=== PATIENT | female | born 1960 | race American Indian/Alaskan Native ===

== ENCOUNTER 2017-08-21 14:46 | Emergency (ER) | payer OTHER ==
[2017-08-21 15:31] VITALS: RESP 18; TEMP 98.8
--- NOTE | 2017-08-21 15:35 | ED PDOC ---
Arrival/HPI - General Chief Complaint: Trauma Time Seen by Provider: 08/21/17 15:28 Historian: Patient - History of Present Illness Narrative History of Present Illness (Text): 08/21/17 15:30 A 56 year old female, with no significant past medical history, presents to the emergency department complaining of left hip pain s/p mechanical fall. Patient reports she was walking 4 days ago and suddenly tripped on uneven sidewalk, falling over backwards. Patient resulted in hitting left hip. Patient was able to ambulate afterwards, denies of any trauma or LOC. However the next day after waking up, patient began experiencing left hip pain and has had difficulty ambulating due to pain. PMD: Dr. Antonio Farfan Past Medical History - Provider Review Nursing Documentation Reviewed: Yes - Infectious Disease Hx of Infectious Diseases: None - Reproductive Menopause: No - Cardiac Hx Hypertension: Yes - Endocrine/Metabolic Hx Diabetes Mellitus Type 2: Yes - Psychiatric Hx Substance Use: No - Anesthesia Hx Anesthesia Reactions: No Family/Social History - Physician Review Nursing Documentation Reviewed: Yes Family/Social History: No Known Family HX Smoking Status: Unknown If Ever Smoked Hx Alcohol Use: No Hx Substance Use: No Allergies/Home Meds Allergies/Adverse Reactions: Allergies No Known Allergies Allergy (Verified 08/21/17 15:32) Review of Systems - Physician Review All systems were reviewed & negative as marked: Yes - Review of Systems Constitutional: absent: Other (no trauma) Respiratory: absent: SOB Cardiovascular: absent: Chest Pain Gastrointestinal: absent: Abdominal Pain, Nausea, Vomiting Musculoskeletal: Other (left hip pain s/p mechanical fall). absent: Back Pain, Neck Pain Neurological: absent: Headache, Dizziness, Other (no LOC) Physical Exam Vital Signs Reviewed: Yes Vital Signs Temp Pulse Resp BP Pulse Ox 08/21/17 17:00 75 18 118/68 100 08/21/17 15:18 98.8 F 82 18 121/70 99 Temperature: Afebrile Blood Pressure: Normal Pulse: Regular Respiratory Rate: Normal Appearance: Positive for: Well-Appearing Pain Distress: None Mental Status: Positive for: Alert and Oriented X 3 - Systems Exam Head: Present: Atraumatic, Normocephalic Neck: No: MIDLINE TENDERNESS, Paraspinal Tenderness Respiratory/Chest: Present: Clear to Auscultation, Good Air Exchange. No: Respiratory Distress, Accessory Muscle Use Cardiovascular: Present: Regular Rate and Rhythm, Normal S1, S2. No: Murmurs Back: No: Midline Tenderness, Paraspinal Tenderness Lower Extremity: Present: Tenderness (left bony hip tenderness). No: Deformity (no palpable deformity) Medical Decision Making ED Course and Treatment: 08/21/17 15:35 Impression: 56 year old female with left hip pain s/p mechanical fall. Physical exam shows left hip bony tenderness and no palpable deformity. Plan: -- Bilateral Hip X-Ray -- Valium -- Toradol -- Reassess and disposition Progress Notes: 08/21/17 17:23 Xray negative. Patient ambulating around the ED without issue. She reports pain is improved. She has PMD follow-up tomorrow morning. - RAD Interpretation Radiology Orders: 08/21/17 15:28 Hip Bi with Pelvis Fall Protocol [HIP MIN 2V W/ PELVIS STERLING] [RAD] Stat - Medication Orders Current Medication Orders: Discontinued Medications Diazepam (Valium) 5 mg PO STAT STA PRN Reason: Protocol Stop: 08/21/17 15:30 Last Admin: 08/21/17 16:28 Dose: 5 mg Ketorolac Tromethamine (Toradol) 30 mg IM STAT STA Stop: 08/21/17 15:30 Last Admin: 08/21/17 16:28 Dose: 30 mg MAR Pain Assessment Document 08/21/17 16:28 REYNALDO (Rec: 08/21/17 16:29 REYNALDO [id number]) Pain Reassessment Is this a pain reassessment? Yes Pain Scale Used Pain Scale Used Numeric Location Left, Right or Bilateral Left Pain Location Body Site Hip Description Intensity of Pain at present 8 IM Administration Charges Document 08/21/17 16:28 REYNALDO (Rec: 08/21/17 16:29 REYNALDO [id number]) Injection Site MAR Injection Site Left Deltoid Charges for Administration # of IM Administrations 1 - Scribe Statement The provider has reviewed the documentation as recorded by the Filippo Osullivan Provider Scribe Attestation: All medical record entries made by the Scribe were at my direction and personally dictated by me. I have reviewed the chart and agree that the record accurately reflects my personal performance of the history, physical exam, medical decision making, and the department course for this patient. I have also personally directed, reviewed, and agree with the discharge instructions and disposition. Disposition/Present on Arrival - Present on Arrival Any Indicators Present on Arrival: No History of DVT/PE: No History of Uncontrolled Diabetes: No Urinary Catheter: No History of Decub. Ulcer: No History Surgical Site Infection Following: None - Disposition Have Diagnosis and Disposition been Completed?: Yes Diagnosis: Hip pain, Fall Disposition: HOME/ ROUTINE Disposition Time: 17:24 Patient Plan: Discharge Condition: GOOD Discharge Instructions (ExitCare): Hip Pain (ED) Additional Instructions: Motrin 400mg every 6 hours for pain. Flexeril for severe muscle spasm. Return to ED if condition worsens. Follow-up with PMD at appt tomorrow as scheduled. Return to ED if condition worsens. Prescriptions: Cyclobenzaprine [Cyclobenzaprine HCl] 10 mg PO TID #15 tab Referrals: Antonio Farfan MD [Primary Care Provider] - Follow up with primary Forms: [employer] (Serbian)
[2017-08-21 15:42] VITALS: BMI 34.2
[2017-08-21 17:47] VITALS: BP 118/68; PULSE 75; O2SAT 100
--- NOTE | 2017-08-22 07:53 | RAD ---
PROCEDURE: Radiographs of the pelvis and bilateral hips HISTORY: L hip pain after fall COMPARISON: None. FINDINGS: BONES: Pelvis: Unremarkable. Right hip:Unremarkable. Left hip:Unremarkable. JOINTS: Right hip: Unremarkable. Left hip: Unremarkable. Sacroiliac Joints: Unremarkable. Pubic symphysis: Unremarkable. SOFT TISSUES: Normal. OTHER FINDINGS: None. IMPRESSION: Unremarkable radiographs of the hips and pelvis.
== END 2017-08-21 17:55 | disposition home or self-care (01) ==
LOC: ED 14:46
DX: M25.552 Pain in left hip (principal); W01.0XXA Fall on same level from slipping, tripping and stumbling without subsequent striking against object, initial encounter; Y92.480 Sidewalk as the place of occurrence of the external cause
CPT/HCPCS: 73521; 96372; 99283; J1885

== ENCOUNTER 2018-01-17 17:43 | Observation (INO) | payer OTHER ==
[2018-01-17 18:00] VITALS: BMI 34.7
--- NOTE | 2018-01-17 18:52 | ED PDOC ---
Arrival/HPI - General Chief Complaint: Weakness/Neurological Deficit Time Seen by Provider: 01/17/18 18:05 Historian: Patient - History of Present Illness Narrative History of Present Illness (Text): 01/17/18 18:41 Pt is a 57 yr old female with PMH of TIA (2011), DMII, HTN, and asthma who present tot the ED complaining of a tingling sensation of her face and neck that started last night at 8:45 pm that lasted roughly 60 minutes after taking ASA 81 mg,then continued and was anxious and felt symptoms arising at 4am that waxed and waned throughout the night. Pt continued to have tingling on the face and lips intermittently. She was seen by her PMD, Dr. Alvarez at 12 noon who advised her to go to the ED for a head CT to ascertain status. Denies chest pain , shortness of breath, nausea, vomiting, diarrhea, neck pain, fever, change in vision, balance, urine or bowel. Symptom Onset: Gradual Symptom Course: Unchanged, Intermittent Quality: Unable to Describe Severity Level: 1 Activities at Onset: Rest Context: Home Past Medical History - Provider Review Nursing Documentation Reviewed: Yes - Travel History Have you recently traveled outside [place] w/in the past 3 mons?: No - Infectious Disease Hx of Infectious Diseases: None - Cardiac Hx Cardiac Disorders: Yes Hx Hypertension: Yes - Pulmonary Hx Respiratory Disorders: Yes Hx Asthma: Yes - Neurological Hx Neurological Disorder: Yes Hx Transient Ischemic Attacks (TIA): Yes (2011) - HEENT Hx HEENT Disorder: Yes Other/Comment: wears glasses - Renal Hx Renal Disorder: No - Endocrine/Metabolic Hx Endocrine Disorders: Yes Hx Diabetes Mellitus Type 2: Yes - Hematological/Oncological Hx Blood Disorders: No - Integumentary Hx Dermatological Disorder: No - Musculoskeletal/Rheumatological Hx Musculoskeletal Disorders: Yes Hx Arthritis: Yes - Gastrointestinal Hx Gastrointestinal Disorders: No - Genitourinary/Gynecological Hx Genitourinary Disorders: No - Psychiatric Hx Psychophysiologic Disorder: No Hx Substance Use: No - Surgical History Other/Comment: Tub lesbiansim, bladder lift., reconstructive left toe surgery - Anesthesia Hx Anesthesia Reactions: No Family/Social History - Physician Review Nursing Documentation Reviewed: Yes Family/Social History: Unknown Family HX Smoking Status: Unknown If Ever Smoked Hx Alcohol Use: No Hx Substance Use: No Allergies/Home Meds Allergies/Adverse Reactions: Allergies No Known Allergies Allergy (Verified 01/17/18 17:50) Home Medications: Home Meds Medication Instructions Recorded Confirmed Albuterol 0.042% [Albuterol 0.042% 0.21 % INH Q8 01/17/18 01/17/18 Inhal Elaine (1.25mg/3ml) UD] Fexofenadine HCl [Micki NF] 180 mg PO DAILY 01/17/18 01/17/18 Fluticasone/Salmeterol 250/50 60 mg INH BID 01/17/18 01/17/18 [Advair Diskus 250/50] Lisinopril/Hydrochlorothiazide 20 mg PO DAILY 01/17/18 01/17/18 [Lisinopril-Hctz 20-12.5 mg Tab] Simvastatin [Zocor] 40 mg PO DAILY 01/17/18 01/17/18 metFORMIN [glucOPHAGE] 500 mg pe PO BID 01/17/18 01/17/18 Review of Systems - Review of Systems Constitutional: Normal Eyes: Normal ENT: Normal Respiratory: Normal Cardiovascular: Normal Gastrointestinal: Normal Genitourinary Female: Normal Musculoskeletal: Normal Skin: Normal Neurological: Normal. absent: Headache, Dizziness, Focal Weakness, Gait Changes , Speech Changes, Facial Droop, Disequilibrium, Seizure Endocrine: Normal Hemo/Lymphatic: Normal Psychiatric: Normal Physical Exam Vital Signs Reviewed: Yes Vital Signs Temp Pulse Resp BP Pulse Ox 01/17/18 21:46 98.2 F 62 18 119/68 99 01/17/18 19:23 76 18 120/79 98 01/17/18 17:44 98.3 F 81 16 172/98 H 95 Temperature: Afebrile Blood Pressure: Hypertensive Pulse: Regular Respiratory Rate: Normal Appearance: Positive for: Well-Appearing, Non-Toxic, Comfortable Pain Distress: None Mental Status: Positive for: Alert and Oriented X 3 Finger Stick Blood Glucose: 99 - Systems Exam Head: Present: Atraumatic, Normocephalic Pupils: Present: PERRL Extroacular Muscles: Present: EOMI Conjunctiva: Present: Normal Mouth: Present: Moist Mucous Membranes Neck: Present: Normal Range of Motion Respiratory/Chest: Present: Clear to Auscultation, Good Air Exchange. No: Respiratory Distress, Accessory Muscle Use Cardiovascular: Present: Regular Rate and Rhythm, Normal S1, S2. No: Murmurs Abdomen: No: Tenderness, Distention, Peritoneal Signs Back: Present: Normal Inspection Upper Extremity: Present: Normal Inspection. No: Cyanosis, Edema Lower Extremity: Present: Normal Inspection. No: Edema Neurological: Present: GCS=15, CN II-XII Intact, Speech Normal, Motor Func Grossly Intact, Normal Sensory Function, Normal Cerebellar Funct, Gait Normal, Memory Normal Skin: Present: Warm, Dry, Normal Color. No: Rashes Psychiatric: Present: Alert, Oriented x 3, Normal Insight, Normal Concentration Medical Decision Making ED Course and Treatment: 01/17/18 18:52 Impression Pt is a 57 yr old female with PMH of TIA (2011), DMII, HTN, and asthma who present tot the ED complaining of a tingling sensation of her face and neck that started last night at 8:45 pm that lasted roughly 60 minutes after taking ASA 81 mg,then continued and was anxious and felt symptoms arising at 4am that waxed and waned throughout the night. NIH Stroke Scale of 0 Pt exhibits symmetrical motor control, CNII-IX intact, speech intact and no focal weakness appreciated Plan Labs,UA, head CT w/o contrast Contact neurology Assess and dispo 01/17/18 22:31 Progress Note Case discussed with Dr. Ross who advised overnight observation in Remote Tele as pt did not meet criteria for Stroke Discussed with Resident and Dr. Kristian Coto to have pt admitted Pt also evaluated by Dr. Larson at bedside Pt remained stable with no neuro deficits Head CT unremarkable - Lab Interpretations Lab Results: 01/17/18 18:50 01/17/18 18:50 Lab Results 01/17/18 18:58: Triglycerides 202 H, Cholesterol Pending, LDL Cholesterol Direct Pending, HDL Cholesterol 43 01/17/18 18:50: Sodium 142, Potassium 4.2, Chloride 103, Carbon Dioxide 30, Anion Gap 14, BUN 20, Creatinine 0.9, Est GFR ( Amer) > 60, Est GFR (Non- Af Amer) > 60, Random Glucose 98, Calcium 9.7, Total Bilirubin 0.3, AST 42 H, ALT 24, Alkaline Phosphatase 98, Total Protein 8.4 H, Albumin 4.4, Globulin 4.0 , Albumin/Globulin Ratio 1.1 01/17/18 18:50: WBC 10.9, RBC 4.81, Hgb 13.7, Hct 41.3, MCV 85.9, MCH 28.5, MCHC 33.2, RDW 15.3 H, Plt Count 368, MPV 9.3, Gran % 52.2, Lymph % (Auto) 39.7 H, [place] % (Auto) 6.9 H, Eos % (Auto) 0.9 L, Baso % (Auto) 0.3, Gran # 5.67, Lymph # (Auto) 4.3 H, [place] # (Auto) 0.8 H, Eos # (Auto) 0.1, Baso # (Auto) 0.03 01/17/18 17:58: POC Glucose (mg/dL) 99 - RAD Interpretation Radiology Orders: 01/17/18 18:30 HEAD W/O CONTRAST [CT] Stat 01/17/18 19:12 CXR [CHEST TWO VIEWS (PA/LAT)] [RAD] Stat - Medication Orders Current Medication Orders: Albuterol Sulfate (Albuterol 0.042% Inhal Elaine (1.25mg/3ml) Ud) mg INH Q8 CHAN Albuterol/Ipratropium (Duoneb 3 Mg/0.5 Mg (3 Ml) Ud) 3 ml IH Q2H PRN PRN Reason: Shortness of Breath Aspirin (Aspirin Chewable) 81 mg PO DAILY [facility] Atorvastatin Calcium (Lipitor) 20 mg PO DAILY [facility]AN Enoxaparin Sodium (Lovenox) 40 mg SC DAILY [facility]AN PRN Reason: Protocol Hydrochlorothiazide (Microzide) 12.5 mg PO DAILY [facility] Insulin Human Regular (Humulin R Med) 0 units SC ACHS [facility] PRN Reason: Protocol Lisinopril (Zestril) 20 mg PO DAILY [facility]AN Pantoprazole Sodium (Protonix Ec Tab) 40 mg PO 0600 [facility] Disposition/Present on Arrival - Present on Arrival Any Indicators Present on Arrival: Yes History of DVT/PE: No History of Uncontrolled Diabetes: No Urinary Catheter: No History of Decub. Ulcer: No History Surgical Site Infection Following: None - Disposition Have Diagnosis and Disposition been Completed?: Yes Diagnosis: Paresthesia, Headache Disposition: HOSPITALIZED Disposition Time: 20:42 Patient Plan: Admission, Telemetry (Remote) Patient Problems: Current Active Problems Problem Status Onset Paresthesia Acute Headache Acute Condition: STABLE
[2018-01-17 19:19] LABS: BASO # 0.03 K/mm3 (0.0-2.0); BASO % 0.3 % (0.0-3.0); EOS # 0.1 (0.0-0.7); EOS % 0.9 % (1.5-5.0); GRAN # 5.67 (1.4-6.5); GRAN % 52.2 % (50.0-68.0); HEMOGLOBIN 13.7 g/dL (12.0-16.0); LYMPH # 4.3 (1.2-3.4); LYMPH % 39.7 % (22.0-35.0); MEAN CELL VOLUME 85.9 fl (80.0-105.0); MEAN CORPUSCULAR HEMOGLOBIN 28.5 pg (25.0-35.0); MEAN CORPUSCULAR HGB CONC 33.2 g/dl (31.0-37.0); MEAN PLATELET VOLUME 9.3 fl (7.0-11.0); MONO # 0.8 (0.1-0.6); MONO % 6.9 % (1.0-6.0); RBC 4.81 10^6/uL (3.5-6.1); RED CELL DISTRIBUTION WIDTH 15.3 % (11.5-14.5); WHITE BLOOD COUNT 10.9 10^3/ul (4.5-11.0)
[2018-01-17 19:25] LABS: ALB/GLOB RATIO 1.1 (1.1-1.8); ALBUMIN 4.4 g/dL (3.0-4.8); ALT/SGPT 24 U/L (7-56); AST/SGOT 42 U/L (14-36); BLOOD UREA NITROGEN 20 mg/dL (7-21); CALCIUM 9.7 mg/dL (8.4-10.5); GFR AFRICAN-AMERICAN > 60; GFR NON-AFRICAN AMERICAN > 60
--- NOTE | 2018-01-17 19:52 | CT ---
EXAM: CT Head Without Intravenous Contrast EXAM DATE/TIME: 01/17/2018 6:30 PM CLINICAL HISTORY: 57 years old, female; Signs and symptoms; Other: Pressure and tingling in head; Additional info: Pressure in head TECHNIQUE: Axial computed tomography images of the head/brain without intravenous contrast. All CT scans at this facility use one or more dose reduction techniques, viz.: automated exposure control; ma/kV adjustment per patient size (including targeted exams where dose is matched to indication; i.e. head); or iterative reconstruction technique. Coronal and sagittal reformatted images were created and reviewed. COMPARISON: There are no prior studies for comparison. FINDINGS: Brain and ventricles: Ventricles are normal in size and configuration. There is no midline shift. There are no intra-axial or extra-axial mass lesions or areas of hemorrhage. There are no abnormal fluid collections. Hernandez-white differentiation is maintained. Bones: Cranial vault is intact. Soft tissues: unremarkable Sinuses: There is no acute sinusitis. Ears and mastoids: Middle ears and mastoids are unremarkable Orbits: Orbital contents are unremarkable. IMPRESSION: No acute intracranial abnormality
--- NOTE | 2018-01-17 20:29 | CP.PCM.HP ---
"History of Present Illness - History of Present Illness History of Present Illness: This patient is a 57 year old female with a PMHx of TIA, DM II, HTN, Asthma, Bilateral Carpal Tunnel syndrome, and osteoarthritis who presents complaining of symptoms of numbness and tingling in the face and left upper extremity. Patient stated that about 8:45PM last night she began to feel a pressure-like sensation on top of her head. She then began to feel numbness and tingling down the right side of her face. Patient then began having palpitations and then tingling in her left forearm and fingers. This caused her to take a baby aspirin and then resolution of her symptoms for a bout 1 hour. Her symptoms returned with numbness and tingling in the right side of her face and became intermittent then after. Patient visited her primary physican today for bloodwork and told him about her symptoms. Her PMD suggested that she come to the emergency room for a CT scan. Associated symptoms included Chest pain, SOB , and RLQ abdominal pain. She denies any fever, dizziness, headache, vision changes, nausea, vomiting, or urinary symptoms. ROS: As stated above PMHx: TIA, DM II, HTN, Asthma, Bilateral Carpal Tunnel syndrome, and osteoarthritis PSHx: Bladder Lift, Reconstructive Toe Surgery, tubal ligation Allergies: Seasonal SocialHx: Denies tobacco, alcohol, or illicit drug use FamHx: Dad-Diabetes | Grandmother/Mom - CVA Meds: Reviewed Present on Admission - Present on Admission Any Indicators Present on Admission: No Review of Systems - Review of Systems All systems: reviewed and no additional remarkable complaints except Review of Systems: As per HPI Past Patient History - Infectious Disease Hx of Infectious Diseases: None - Past Social History Smoking Status: Unknown If Ever Smoked - CARDIAC Hx Cardiac Disorders: Yes Hx Hypertension: Yes - PULMONARY Hx Respiratory Disorders: Yes Hx Asthma: Yes - NEUROLOGICAL Hx Neurological Disorder: Yes Hx Transient Ischemic Attacks (TIA): Yes (2011) - HEENT Hx HEENT Problems: Yes Other/Comment: wears glasses - RENAL Hx Chronic Kidney Disease: No - ENDOCRINE/METABOLIC Hx Endocrine Disorders: Yes Hx Diabetes Mellitus Type 2: Yes - HEMATOLOGICAL/ONCOLOGICAL Hx Blood Disorders: No - INTEGUMENTARY Hx Dermatological Problems: No - MUSCULOSKELETAL/RHEUMATOLOGICAL Hx Musculoskeletal Disorders: Yes Hx Arthritis: Yes - GASTROINTESTINAL Hx Gastrointestinal Disorders: No - GENITOURINARY/GYNECOLOGICAL Hx Genitourinary Disorders: No - PSYCHIATRIC Hx Psychophysiologic Disorder: No Hx Substance Use: No - SURGICAL HISTORY Other/Comment: Tub lesbiansim, bladder lift., reconstructive left toe surgery - ANESTHESIA Hx Anesthesia Reactions: No Meds Allergies/Adverse Reactions: Allergies Allergy/AdvReac Type Severity Reaction Status Date / Time No Known Allergies Allergy Verified 01/17/18 17:50 Physical Exam - Constitutional Appears: Well, Non-toxic, No Acute Distress - Head Exam Head Exam: ATRAUMATIC, NORMAL INSPECTION, NORMOCEPHALIC - Eye Exam Eye Exam: EOMI, Normal appearance, PERRL - ENT Exam ENT Exam: Mucous Membranes Moist - Neck Exam Neck exam: Positive for: Normal Inspection. Negative for: Lymphadenopathy, Tenderness, Thyromegaly - Respiratory Exam Respiratory Exam: Clear to Auscultation Bilateral, NORMAL BREATHING PATTERN - Cardiovascular Exam Cardiovascular Exam: RRR, +S1, +S2. absent: JVD Additional comments: No Carotid Bruit. - GI/Abdominal Exam GI & Abdominal Exam: Normal Bowel Sounds, Soft. absent: Distended, Firm, Guarding, Tenderness - Extremities Exam Extremities exam: Positive for: normal capillary refill, normal inspection. Negative for: pedal edema - Neurological Exam Neurological exam: Alert, CN II-XII Intact, Oriented x3 Additional comments: No Motor or sensory Deficit 5/5 Motor Strength in the Upper and Lower Extremity - Psychiatric Exam Psychiatric exam: Normal Affect, Normal Mood - Skin Skin Exam: Dry, Intact, Normal Color, Warm Results - Vital Signs Recent Vital Signs: Last Vital Signs Temp 98.3 F 01/17/18 17:44 Pulse 76 01/17/18 19:23 Resp 18 01/17/18 19:23 BP 120/79 01/17/18 19:23 Pulse Ox 98 01/17/18 19:23 - Labs Result Diagrams: 01/17/18 18:50 01/17/18 18:50 Labs: Laboratory Results - last 24 hr 01/17/18 01/17/18 01/17/18 17:58 18:50 18:50 WBC 10.9 RBC 4.81 Hgb 13.7 Hct 41.3 MCV 85.9 MCH 28.5 MCHC 33.2 RDW 15.3 H Plt Count 368 MPV 9.3 Gran % 52.2 Lymph % (Auto) 39.7 H [place] % (Auto) 6.9 H Eos % (Auto) 0.9 L Baso % (Auto) 0.3 Gran # 5.67 Lymph # (Auto) 4.3 H [place] # (Auto) 0.8 H Eos # (Auto) 0.1 Baso # (Auto) 0.03 Sodium 142 Potassium 4.2 Chloride 103 Carbon Dioxide 30 Anion Gap 14 BUN 20 Creatinine 0.9 Est GFR ( Amer) > 60 Est GFR (Non-Af Amer) > 60 POC Glucose (mg/dL) 99 Random Glucose 98 Calcium 9.7 Total Bilirubin 0.3 AST 42 H ALT 24 Alkaline Phosphatase 98 Total Protein 8.4 H Albumin 4.4 Globulin 4.0 Albumin/Globulin Ratio 1.1 Assessment & Plan - Assessment and Plan (Free Text) Assessment: 57 year old female with a PMHx of TIA, DM II, HTN, Asthma, Bilateral Carpal Tunnel syndrome, and osteoarthritis admitted for evaluation and treatment of symptoms of numbness in tingling in the face and right arm. Plan: Numbness/Tingling DDx: Diabetic Neuropathy, Hemiplegic Migraine, Vitamin Deficiency, TIA, CT Head - NEGATIVE EKG: NSR with no ST/T wave elevations MRI Lipid Panel Vitamin B12, Folate, Vitamin D NeuroChecks Q2H Neurology Consult ([facility]) TSH/T4 Consider Lyme Titers Hx of HTN Lisinopril 20 HCTZ Hx of DMII ISS Regular HgBA1C Hx of Asthma Continue Home Albuterol DuoNebs PRN. Hx of HLD Lipitor 20 Daily Proph Lovenox Protonix Heart Healthy Diet Patient seen and examined with Attending (Dr. Swapna Coto) Roz Quigley, PGY-1 NIHSS Scale ([place]) Time Performed: 09:00 - How Severe is the Stoke Baseline Level of Consciousness: 0=Alert LOC to Questions: 0=Both comments correct LOC to commands: 0=Obeys both correctly Best Gaze: 0=Normal Visual: 0=No visual loss Facial: 0=Normal Motor Arm - Left: 0=No drift Motor Arm - Right: 0=No drift Motor Leg - Left: 0=No drift Motor Leg - Right: 0=No drift Limb Ataxia: 0=Absent Sensory: 0=Normal Best Language: 0=No aphasia Dysarthia: 0=Normal articulation Extinction & Inattention (Neglect): 0=Normal, no object Score: 0 Risk Level: No Stroke Risk"
[2018-01-17 21:52] LABS: HDL CHOLESTEROL 43 mg/dL (29-60)
[2018-01-17 22:02] LABS: LDL CHOLESTEROL 154 mg/dL (0-129)
[2018-01-17 22:31] LABS: FREE T4 1.2 ng/dL (0.78-2.19)
[2018-01-17] MEDS: Insulin Reg-MEDIUM-Coverage SC SCH (23:35)
[2018-01-17] MEDS: Albuterol-Ipratrop 3 mg / 0.5 (3 ml) UD IH PRN (23:45)
[2018-01-17] MEDS: Albuterol 0.042% Inhal Sol (1.25 mg/3 mL) UD INH SCH (23:45)
[2018-01-18] MEDS: Pantoprazole 40 mg EC Tab PO SCH (05:42)
[2018-01-18 06:24] LABS: BASO # 0.02 K/mm3 (0.0-2.0); BASO % 0.2 % (0.0-3.0); EOS # 0.1 (0.0-0.7); GRAN # 4.69 (1.4-6.5); GRAN % 48.3 % (50.0-68.0); HEMOGLOBIN 12.7 g/dL (12.0-16.0); LYMPH # 4.1 (1.2-3.4); LYMPH % 42.4 % (22.0-35.0); MEAN CORPUSCULAR HGB CONC 32.2 g/dl (31.0-37.0); MEAN PLATELET VOLUME 9.3 fl (7.0-11.0); MONO # 0.8 (0.1-0.6); MONO % 8.1 % (1.0-6.0); RBC 4.53 10^6/uL (3.5-6.1); RED CELL DISTRIBUTION WIDTH 15.4 % (11.5-14.5); WHITE BLOOD COUNT 9.7 10^3/ul (4.5-11.0)
[2018-01-18 07:37] LABS: ALB/GLOB RATIO 1.1 (1.1-1.8); ALT/SGPT 21 U/L (7-56); AST/SGOT 29 U/L (14-36); BLOOD UREA NITROGEN 17 mg/dL (7-21); CALCIUM 9.5 mg/dL (8.4-10.5); GFR AFRICAN-AMERICAN > 60; GFR NON-AFRICAN AMERICAN 57
[2018-01-18] MEDS: Albuterol-Ipratrop 3 mg / 0.5 (3 ml) UD IH PRN ×3 (08:06→19:17)
[2018-01-18] MEDS: Albuterol 0.042% Inhal Sol (1.25 mg/3 mL) UD INH SCH ×3 (08:06→23:15)
[2018-01-18] MEDS: Insulin Reg-MEDIUM-Coverage SC SCH ×4 (08:39→22:59)
[2018-01-18] MEDS: Enoxaparin 40 mg Syringe SC SCH (09:24)
[2018-01-18] MEDS ORDERED: Fluticasone-Salmeterol 250-50mcg Diskus INH SCH (10:00)
--- NOTE | 2018-01-18 11:10 | CP.PCM.PN ---
<Sonia Pemberton - Last Filed: 01/18/18 11:47> Subjective - Date & Time of Evaluation Date of Evaluation: 01/18/18 Time of Evaluation: 11:07 - Subjective Subjective: Internal Medicine Progress Note: Patient seen and examined at bedside. Per nursing no acute events overnight. Patient still reports having tingling sensation in her face and her right leg. She reports that she was experiencing similar symptoms when she had a TIA in 2011. She is able to ambulate without difficulty. Denies headaches, dizziness, cp, palpitations, sob, abdominal pain, urinary symptoms. Denies any facial droop or focal deficits. Objective - Vital Signs/Intake and Output Vital Signs (last 24 hours): Temp Pulse Resp BP Pulse Ox 97.5 F L 53 L 19 106/72 98 01/18/18 08:17 01/18/18 09:23 01/18/18 08:17 01/18/18 09:23 01/18/18 08:17 Intake and Output: 01/18/18 01/18/18 06:59 18:59 Intake Total 120 Balance 120 - Medications Medications: Current Medications Albuterol Sulfate (Albuterol 0.042% Inhal Elaine (1.25mg/3ml) Ud) 1.25 mg INH Q8 [facility] Last Admin: 01/18/18 08:06 Dose: Not Given Albuterol/Ipratropium (Duoneb 3 Mg/0.5 Mg (3 Ml) Ud) 3 ml IH Q2H PRN PRN Reason: Shortness of Breath Last Admin: 01/18/18 08:06 Dose: 3 ml Aspirin (Aspirin Chewable) 81 mg PO DAILY [facility] Last Admin: 01/18/18 09:23 Dose: 81 mg Atorvastatin Calcium (Lipitor) 40 mg PO DIN [facility] Enoxaparin Sodium (Lovenox) 40 mg SC DAILY [facility] PRN Reason: Protocol Last Admin: 01/18/18 09:24 Dose: 40 mg Hydrochlorothiazide (Microzide) 12.5 mg PO DAILY [facility] Last Admin: 01/18/18 09:23 Dose: 12.5 mg Insulin Human Regular (Humulin R Med) 0 units SC ACHS [facility] PRN Reason: Protocol Last Admin: 01/18/18 08:39 Dose: Not Given Lisinopril (Zestril) 20 mg PO DAILY [facility] Last Admin: 01/18/18 09:23 Dose: 20 mg Pantoprazole Sodium (Protonix Ec Tab) 40 mg PO 0600 [facility] Last Admin: 01/18/18 05:42 Dose: 40 mg - Labs Labs: 01/18/18 05:30 01/18/18 05:30 - Constitutional Appears: Well, Non-toxic, No Acute Distress - Head Exam Head Exam: ATRAUMATIC, NORMAL INSPECTION, NORMOCEPHALIC - Eye Exam Eye Exam: EOMI, Normal appearance Pupil Exam: NORMAL ACCOMODATION - ENT Exam ENT Exam: Mucous Membranes Moist - Neck Exam Neck Exam: Full ROM - Respiratory Exam Respiratory Exam: Clear to Ausculation Bilateral, NORMAL BREATHING PATTERN. absent: Rales, Rhonchi, Wheezes - Cardiovascular Exam Cardiovascular Exam: REGULAR RHYTHM, +S1, +S2 - GI/Abdominal Exam GI & Abdominal Exam: Soft, Normal Bowel Sounds. absent: Guarding, Rigid, Tenderness - Extremities Exam Extremities Exam: Full ROM, Normal Inspection - Back Exam Back Exam: NORMAL INSPECTION - Neurological Exam Neurological Exam: Alert, Awake, Oriented x3 Neuro motor strength exam: Left Upper Extremity: 5, Right Upper Extremity: 5, Left Lower Extremity: 5, Right Lower Extremity: 5 Additional comments: Patient with intact sensation all through out Patient repors Subjective tingling in the face, and right leg No facial droop - Psychiatric Exam Psychiatric exam: Normal Affect, Normal Mood - Skin Skin Exam: Dry, Normal Color, Warm Assessment and Plan - Assessment and Plan (Free Text) Assessment: Patient is a 57 year old female with a PMHx of TIA, DM II, HTN, Asthma, Bilateral Carpal Tunnel syndrome, and osteoarthritis admitted for evaluation and treatment of symptoms of numbness in tingling in the face and right leg. Plan: Numbness/Tingling -Patient is stable, afebrile -Continue to monitor on tele (no overnight events) -CT head was negative for acute intracranial abnormality -EKG showed NSR with no ST wave changes -Lipid panel: Triglycerides-202, Cholesterol-250, LDL-154, HDL-43 -Patient is complaint with her medications -Will increase to Lipitor 40mg PO HS -Continue ASA 81mg PO daily -F/U MRI and echocardiogram -Neurology on consult, help appreciated -F/U Vitamin B12/Folate levels, HgA1C -TSH and Free T4 within normal limits -Continue Neuro checks DDx: Diabetic Neuropathy, Hemiplegic Migraine, Vitamin Deficiency, TIA, Hx of HTN -Continue Lisinopril 20 -Continue HCTZ Hx of DMII - ISS Regular - Accuchecks ACHS - F/U HgBA1C Hx of Asthma -Continue Home Albuterol -DuoNebs PRN. Hx of HLD - Increased to Lipitor 40mg PO HS GI/DVT Proph -Lovenox -Protonix -Heart Healthy Diet Plan discussed with Dr Arvizu <Raoul Arvizu - Last Filed: 01/19/18 17:09> Objective - Vital Signs/Intake and Output Vital Signs (last 24 hours): Temp Pulse Resp BP Pulse Ox 97.4 F L 56 L 18 113/73 100 01/19/18 06:00 01/19/18 10:02 01/19/18 06:00 01/19/18 10:02 01/19/18 06:00 Intake and Output: 01/19/18 01/19/18 06:59 18:59 Intake Total 720 Balance 720 - Labs Labs: 01/19/18 05:20 01/19/18 05:20 Attending/Attestation - Attestation I have personally seen and examined this patient.: Yes I have fully participated in the care of the patient.: Yes I have reviewed all pertinent clinical information, including history, physical exam and plan: Yes Notes (Text): 01/19/18 17:02 Medical record note made by the resident after discussion with my direction and input after the patient was personally seen and examined by me. I have reviewed the chart and agree that the record accurately reflects by personal performance of the history, physical exam, data review, and medical decision-making, in the course for the patient. I have also personally directed the plan of care. 57 year old female with a PMHx of TIA, DM II, HTN, Bilateral Carpal Tunnel syndrome, and osteoarthritis was admitted for evaluation and treatment of symptoms of numbness in tingling in the face and right leg.There is no focal deficit.Patient had CT scan of Brain,CTA of head and neck and MRI of brain which are unremarkable for any acute finding.His lipitor dise was increased to 40 mg po daily at the time of discharge. Patient symptoms has improved.She is ambulatory. Patient has episode of back pain and right sided chest discomfort last night, was found to have chest wall tenderness.EKG was negative for ischemic changes.Serial troponins are normal.Patient is pain free.Echo showed normal systolic function.Patient will follow up with cardiology and will have out patient stress test. Management plan was discussed in detail with patient. Education was provided. 01/19/18 17:05
--- NOTE | 2018-01-18 12:55 | CP.PCM.CON ---
History of Present Illness - History of Present Illness History of Present Illness: Neurology Consult Note - Dr. Stewart CC: headache, facial and arm tingling and chest pain HPI: 57 F with a PMHx of TIA (2011), DM2, HTN, HLD, asthma and carpal tunnel syndrome presented to [facility] ED with complaints of headache and sensation loss. Pt states 01/16/18 she experienced a pressure headache localized to the top of her head and at times felt a electric sensation from he front of her head radiating towards the back of her head. Shortly afterwards, pt noticed the right calista of her face lose sensation and soon after that felt sensation loss in her left arm. She denied and weakness. She also had associated chest pains, for which she took aspirin and that happened to alleviate her symptoms. Pt expereinced a similair episode in 2011 where she was hospitalized for roughly 3 days and placed on asa/plavix. She recently moved to [place] and established a new PMD. She has been taking her medications as perescribed, however, for the past month she has not taken her simvistatin on account of no refills. Pt was seen and examined at bedside. Pt has persistent tingling sensation of the right face and left arm, however has improved since admission.She denies any fever, dizziness, headache, vision changes, nausea, vomiting, or urinary symptoms. PMHx: TIA, DM II, HTN, Asthma, Bilateral Carpal Tunnel syndrome, and osteoarthritis PSHx: Bladder Lift, Reconstructive Toe Surgery, tubal ligation SocialHx: Denies tobacco, alcohol, or illicit drug use FamHx: DM2, CVA Meds: MAR Reviewed Allergies: NKDA Past Patient History - Infectious Disease Hx of Infectious Diseases: None - Past Social History Smoking Status: Never Smoked - CARDIAC Hx Cardiac Disorders: Yes Hx Hypertension: Yes - PULMONARY Hx Respiratory Disorders: Yes Hx Asthma: Yes - NEUROLOGICAL Hx Neurological Disorder: Yes Hx Transient Ischemic Attacks (TIA): Yes (in 2011) - HEENT Hx HEENT Problems: No - RENAL Hx Chronic Kidney Disease: No - ENDOCRINE/METABOLIC Hx Endocrine Disorders: Yes Hx Diabetes Mellitus Type 2: Yes - HEMATOLOGICAL/ONCOLOGICAL Hx Blood Disorders: No - INTEGUMENTARY Hx Dermatological Problems: No - MUSCULOSKELETAL/RHEUMATOLOGICAL Hx Musculoskeletal Disorders: Yes Hx Falls: Yes Hx Osteoarthritis: Yes - GASTROINTESTINAL Hx Gastrointestinal Disorders: No - GENITOURINARY/GYNECOLOGICAL Hx Genitourinary Disorders: No - PSYCHIATRIC Hx Psychophysiologic Disorder: No Hx Substance Use: No - SURGICAL HISTORY Hx Surgeries: Yes Other/Comment: - Tubal ligation/bladder lift - ANESTHESIA Hx Anesthesia Reactions: No Meds Allergies/Adverse Reactions: Allergies Allergy/AdvReac Type Severity Reaction Status Date / Time No Known Allergies Allergy Verified 01/17/18 17:50 - Medications Medications: Current Medications Albuterol Sulfate (Albuterol 0.042% Inhal Elaine (1.25mg/3ml) Ud) 1.25 mg INH Q8 [facility] Last Admin: 01/18/18 08:06 Dose: Not Given Albuterol/Ipratropium (Duoneb 3 Mg/0.5 Mg (3 Ml) Ud) 3 ml IH Q2H PRN PRN Reason: Shortness of Breath Last Admin: 01/18/18 08:06 Dose: 3 ml Aspirin (Aspirin Chewable) 81 mg PO DAILY [facility] Last Admin: 01/18/18 09:23 Dose: 81 mg Atorvastatin Calcium (Lipitor) 40 mg PO DIN [facility] Enoxaparin Sodium (Lovenox) 40 mg SC DAILY [facility] PRN Reason: Protocol Last Admin: 01/18/18 09:24 Dose: 40 mg Hydrochlorothiazide (Microzide) 12.5 mg PO DAILY [facility] Last Admin: 01/18/18 09:23 Dose: 12.5 mg Insulin Human Regular (Humulin R Med) 0 units SC ACHS [facility] PRN Reason: Protocol Last Admin: 01/18/18 08:39 Dose: Not Given Lisinopril (Zestril) 20 mg PO DAILY [facility] Last Admin: 01/18/18 09:23 Dose: 20 mg Pantoprazole Sodium (Protonix Ec Tab) 40 mg PO 0600 [facility] Last Admin: 01/18/18 05:42 Dose: 40 mg Results - Vital Signs Recent Vital Signs: Last Vital Signs Temp 97.5 F L 01/18/18 08:17 Pulse 53 L 01/18/18 09:23 Resp 19 01/18/18 08:17 BP 106/72 01/18/18 09:23 Pulse Ox 98 01/18/18 08:17 - Labs Result Diagrams: 01/18/18 05:30 01/18/18 05:30 Labs: Laboratory Results - last 24 hr 01/17/18 01/17/18 01/18/18 22:01 22:11 00:59 WBC RBC Hgb Hct MCV MCH MCHC RDW Plt Count MPV Gran % Lymph % (Auto) Karnes % (Auto) Eos % (Auto) Baso % (Auto) Gran # Lymph # (Auto) Karnes # (Auto) Eos # (Auto) Baso # (Auto) Sodium Potassium Chloride Carbon Dioxide Anion Gap BUN Creatinine Est GFR ( Amer) Est GFR (Non-Af Amer) POC Glucose (mg/dL) 74 130 H Random Glucose Calcium Total Bilirubin AST ALT Alkaline Phosphatase Total Protein Albumin Globulin Albumin/Globulin Ratio Free T4 1.20 TSH 3rd Generation 2.07 01/18/18 01/18/18 01/18/18 05:30 05:30 07:28 WBC 9.7 RBC 4.53 Hgb 12.7 Hct 39.4 MCV 87.0 MCH 28.0 MCHC 32.2 RDW 15.4 H Plt Count 350 MPV 9.3 Gran % 48.3 L Lymph % (Auto) 42.4 H Karnes % (Auto) 8.1 H Eos % (Auto) 1.0 L Baso % (Auto) 0.2 Gran # 4.69 Lymph # (Auto) 4.1 H Karnes # (Auto) 0.8 H Eos # (Auto) 0.1 Baso # (Auto) 0.02 Sodium 142 Potassium 4.0 Chloride 104 Carbon Dioxide 30 Anion Gap 13 BUN 17 Creatinine 1.0 Est GFR ( Amer) > 60 Est GFR (Non-Af Amer) 57 POC Glucose (mg/dL) 97 Random Glucose 98 Calcium 9.5 Total Bilirubin 0.3 AST 29 ALT 21 Alkaline Phosphatase 81 Total Protein 7.6 Albumin 4.0 Globulin 3.6 Albumin/Globulin Ratio 1.1 Free T4 TSH 3rd Generation 01/18/18 11:22 WBC RBC Hgb Hct MCV MCH MCHC RDW Plt Count MPV Gran % Lymph % (Auto) Karnes % (Auto) Eos % (Auto) Baso % (Auto) Gran # Lymph # (Auto) Karnes # (Auto) Eos # (Auto) Baso # (Auto) Sodium Potassium Chloride Carbon Dioxide Anion Gap BUN Creatinine Est GFR ( Amer) Est GFR (Non-Af Amer) POC Glucose (mg/dL) 104 Random Glucose Calcium Total Bilirubin AST ALT Alkaline Phosphatase Total Protein Albumin Globulin Albumin/Globulin Ratio Free T4 TSH 3rd Generation
[2018-01-18 13:15] LABS: FOLATE 18.7 ng/mL
--- NOTE | 2018-01-18 15:59 | CT ---
PROCEDURE: CT Angiography of the Brain. HISTORY: ro occlusion COMPARISON: None available. TECHNIQUE: CT angiography of the intracranial and neck arteries was performed. Coronal and sagittal maximum intensity projection reformated images were generated. Contrast Dose: Omnipaque 350, 150 cc. Radiation dose:Total exam DLP = 462.63 mGy-cm. This CT exam was performed using one or more of the following dose reduction techniques: Automated exposure control, adjustment of the mA and/or kV according to patient size, and/or use of iterative reconstruction technique. FINDINGS: INTERNAL CEREBRAL ARTERIES: The skull base, petrous, cavernous and supraclinoid segments are bilaterally patent. Limited bilateral cavernous ICA atherosclerotic plaques identified. ANTERIOR CEREBRAL ARTERIES: Unremarkable. A1 and A2 segments are widely patent. Smaller distal branches unremarkable, as visualized. MIDDLE CEREBRAL ARTERIES: Unremarkable. M1 and M2 segments are widely patent. Perisylvian branches grossly symmetric. POSTERIOR CIRCULATION: Basilar Artery: Unremarkable. Distal Vertebral Arteries: Unremarkable. Posterior Cerebral Arteries: Unremarkable. Posterior Inferior Cerebellar Arteries: Unremarkable. NECK CTA: Common Carotid arteries: The bilateral common carotid appear widely patent from their origins to their bifurcations with no significant stenosis appreciated. No evidence to suggest common carotid artery dissection. Internal Carotid arteries: No significant stenosis is appreciated throughout the cervical internal carotid artery segments bilaterally and there is no evidence of dissection either. External Carotid arteries: Appear unremarkable bilaterally. Vertebral arteries: The bilateral vertebral arteries appear normal in caliber from their origins to their junction with the basilar artery. No significant stenosis or definite pattern of dissection. ANEURYSM/ VASCULAR MALFORMATIONS: None. OTHER FINDINGS: None. IMPRESSION: No definite significant stenosis and no definite occlusion identified throughout CT of the brain and neck major arteries as discussed above. No arteriovascular malformation or aneurysm identified.
--- NOTE | 2018-01-18 16:36 | MRI ---
PROCEDURE: MRI BRAIN WITHOUT CONTRAST HISTORY: R/O CVA COMPARISON: None. TECHNIQUE: Multiplanar, multisequence MR images of the brain were obtained without intravenous contrast enhancement. FINDINGS: HEMORRHAGE: None DWI: No evidence of an acute or early subacute infarction. BRAIN PARENCHYMA: No mass effect or edema. No atrophy or chronic microvascular ischemic changes. VENTRICLES: Unremarkable. No hydrocephalus. CRANIUM: Unremarkable. ORBITS: Grossly unremarkable. PARANASAL SINUSES/MASTOIDS: Clear VASCULAR SYSTEM: Skull base flow voids intact. OTHER FINDINGS: There is a partially empty sella. IMPRESSION: No acute findings
--- NOTE | 2018-01-18 22:55 | CARD ---
APPROVED REPORT EKG Measurement Heart [id number] <Conclusion> Normal sinus rhythm Normal ECG
[2018-01-18 23:43] VITALS: RESP 18
[2018-01-19 06:05] LABS: BASO # 0.02 K/mm3 (0.0-2.0); BASO % 0.2 % (0.0-3.0); EOS # 0.2 (0.0-0.7); EOS % 1.7 % (1.5-5.0); GRAN # 4.16 (1.4-6.5); GRAN % 47.9 % (50.0-68.0); HEMOGLOBIN 12.4 g/dL (12.0-16.0); LYMPH # 3.7 (1.2-3.4); LYMPH % 42.1 % (22.0-35.0); MEAN CELL VOLUME 86.5 fl (80.0-105.0); MEAN CORPUSCULAR HEMOGLOBIN 27.5 pg (25.0-35.0); MEAN CORPUSCULAR HGB CONC 31.8 g/dl (31.0-37.0); MEAN PLATELET VOLUME 9.3 fl (7.0-11.0); MONO # 0.7 (0.1-0.6); MONO % 8.1 % (1.0-6.0); RBC 4.51 10^6/uL (3.5-6.1); RED CELL DISTRIBUTION WIDTH 15.6 % (11.5-14.5); WHITE BLOOD COUNT 8.7 10^3/ul (4.5-11.0)
[2018-01-19] MEDS: Pantoprazole 40 mg EC Tab PO SCH (06:33)
[2018-01-19 06:48] LABS: ALB/GLOB RATIO 1.1 (1.1-1.8); ALBUMIN 3.8 g/dL (3.0-4.8); ALT/SGPT 21 U/L (7-56); AST/SGOT 34 U/L (14-36); BLOOD UREA NITROGEN 20 mg/dL (7-21); GFR AFRICAN-AMERICAN > 60; GFR NON-AFRICAN AMERICAN 57
[2018-01-19 07:52] VITALS: BP 113/73; PULSE 56; TEMP 97.4; O2SAT 100
[2018-01-19] MEDS: Albuterol 0.042% Inhal Sol (1.25 mg/3 mL) UD INH SCH (08:10)
[2018-01-19] MEDS: Insulin Reg-MEDIUM-Coverage SC SCH ×2 (08:16→13:57)
[2018-01-19] MEDS: Enoxaparin 40 mg Syringe SC SCH (10:01)
--- NOTE | 2018-01-19 11:42 | CP.PCM.DIS ---
Provider - Provider Date of Admission: 01/17/18 20:43 Attending physician: Raoul Arvizu MD Primary care physician: Antonio Farfan MD Consults: Neurology: Terry Time Spent in preparation of Discharge (in minutes): 35 Hospital Course - Lab Results Lab Results: Most Recent Lab Values WBC 8.7 10^3/ul (4.5-11.0) 01/19/18 05:20 RBC 4.51 10^6/uL (3.5-6.1) 01/19/18 05:20 Hgb 12.4 g/dL (12.0-16.0) 01/19/18 05:20 Hct 39.0 % (36.0-48.0) 01/19/18 05:20 MCV 86.5 fl (80.0-105.0) 01/19/18 05:20 MCH 27.5 pg (25.0-35.0) 01/19/18 05:20 MCHC 31.8 g/dl (31.0-37.0) 01/19/18 05:20 RDW 15.6 % (11.5-14.5) H 01/19/18 05:20 Plt Count 335 10^3/uL (120.0-450.0) 01/19/18 05:20 MPV 9.3 fl (7.0-11.0) 01/19/18 05:20 Gran % 47.9 % (50.0-68.0) L 01/19/18 05:20 Lymph % (Auto) 42.1 % (22.0-35.0) H 01/19/18 05:20 Smyth % (Auto) 8.1 % (1.0-6.0) H 01/19/18 05:20 Eos % (Auto) 1.7 % (1.5-5.0) 01/19/18 05:20 Baso % (Auto) 0.2 % (0.0-3.0) 01/19/18 05:20 Gran # 4.16 (1.4-6.5) 01/19/18 05:20 Lymph # (Auto) 3.7 (1.2-3.4) H 01/19/18 05:20 Smyth # (Auto) 0.7 (0.1-0.6) H 01/19/18 05:20 Eos # (Auto) 0.2 (0.0-0.7) 01/19/18 05:20 Baso # (Auto) 0.02 K/mm3 (0.0-2.0) 01/19/18 05:20 Sodium 138 mmol/L (132-148) 01/19/18 05:20 Potassium 4.1 mmol/L (3.6-5.0) 01/19/18 05:20 Chloride 101 mmol/L (98-107) 01/19/18 05:20 Carbon Dioxide 28 mmol/L (21-33) 01/19/18 05:20 Anion Gap 14 (10-20) 01/19/18 05:20 BUN 20 mg/dL (7-21) 01/19/18 05:20 Creatinine 1.0 mg/dl (0.7-1.2) 01/19/18 05:20 Est GFR ( Amer) > 60 01/19/18 05:20 Est GFR (Non-Af Amer) 57 01/19/18 05:20 POC Glucose (mg/dL) 121 mg/dL (65-110) H 01/19/18 11:24 Random Glucose 98 mg/dL (70-110) 01/19/18 05:20 Hemoglobin A1c 6.6 % (4.2-6.5) H 01/17/18 18:58 Calcium 9.0 mg/dL (8.4-10.5) 01/19/18 05:20 Total Bilirubin 0.4 mg/dL (0.2-1.3) 01/19/18 05:20 AST 34 U/L (14-36) 01/19/18 05:20 ALT 21 U/L (7-56) 01/19/18 05:20 Alkaline Phosphatase 76 U/L (38-126) 01/19/18 05:20 Troponin I < 0.01 ng/mL 01/19/18 05:30 Total Protein 7.5 g/dL (5.8-8.3) 01/19/18 05:20 Albumin 3.8 g/dL (3.0-4.8) 01/19/18 05:20 Globulin 3.7 gm/dL 01/19/18 05:20 Albumin/Globulin Ratio 1.1 (1.1-1.8) 01/19/18 05:20 Triglycerides 202 mg/dL (35-160) H 01/17/18 18:58 Cholesterol 250 mg/dL (130-200) H 01/17/18 18:58 LDL Cholesterol Direct 154 mg/dL (0-129) H 01/17/18 18:58 HDL Cholesterol 43 mg/dL (29-60) 01/17/18 18:58 Vitamin B12 > 1000 pg/mL (239-931) H 01/17/18 18:58 25-OH Vitamin D Total 29.7 NG/ML (30.0-100.0) L 01/17/18 18:58 Folate 18.7 ng/mL 01/17/18 18:58 Free T4 1.20 ng/dL (0.78-2.19) 01/17/18 22:01 TSH 3rd Generation 2.07 mIU/mL (0.46-4.68) 01/17/18 22:01 - Hospital Course Hospital Course: History of Present Illness: This patient is a 57 year old female with a PMHx of TIA, DM II, HTN, Asthma, Bilateral Carpal Tunnel syndrome, and osteoarthritis who presents complaining of symptoms of numbness and tingling in the face and left upper extremity. Patient stated that about 8:45PM last night she began to feel a pressure-like sensation on top of her head. She then began to feel numbness and tingling down the right side of her face. Patient then began having palpitations and then tingling in her left forearm and fingers. This caused her to take a baby aspirin and then resolution of her symptoms for a bout 1 hour. Her symptoms returned with numbness and tingling in the right side of her face and became intermittent then after. Patient visited her primary physican today for bloodwork and told him about her symptoms. Her PMD suggested that she come to the emergency room for a CT scan. Associated symptoms included Chest pain, SOB , and RLQ abdominal pain. She denies any fever, dizziness, headache, vision changes, nausea, vomiting, or urinary symptoms. Hospital Course: Patient was admitted to Med/Surg and monitored on telemetry. CT head was negative for acute abnormality. Neurology was consulted. MRI and CTA head/neck were negative. Patient also went for Carotid Dopplers which were normal. Lipid panel showed hypertrigylceridemia, hypercholersterolemia. Lipitor was increased to 40mg PO HS. Echocardiogram official report is pending, however prelim report showed EF 54%. During hospital stay, patient was complaining of chest pain with radiation to the back. EKG was unchanged from admission. Troponins were negative x 2. Chest pain likely musculoskeletal. Pain improved with NSAIDs. On day of discharge patient was doing well, she reported that numbness and tingling was improving. She was ambulatory and tolerating diet. Patient was seen by Physical Therapy who recommended disposition home. Patient to follow up with PMD within 1 week. We are also recommending outpatient stress test with Dr Boswell. Discharge Medications: Lipitor 40mg PO HS Vitamin D 1,000 units PO daily Discharge Diagnosis: Numbness/Tingling 2/2 TIA vs Diabetic Neuropathy Hypercholesterolemia/Hypertriglyceridema Chest pain (musculoskeletal) Vitamin D Deficiency Discharge Exam - Head Exam Head Exam: ATRAUMATIC, NORMAL INSPECTION, NORMOCEPHALIC - Eye Exam Eye Exam: EOMI, Normal appearance Pupil Exam: NORMAL ACCOMODATION - ENT Exam ENT Exam: Mucous Membranes Moist - Respiratory Exam Respiratory Exam: Clear to PA & Lateral, NORMAL BREATHING PATTERN, UNREMARKABLE. absent: Rales, Rhonchi, Wheezes - Cardiovascular Exam Cardiovascular Exam: REGULAR RHYTHM, +S1, +S2 - GI/Abdominal Exam GI & Abdominal Exam: Normal Bowel Sounds, Soft, Unremarkable. absent: Guarding , Rebound, Rigid, Tenderness - Extremities Exam Extremities exam: normal inspection - Back Exam Back exam: NORMAL INSPECTION - Neurological Exam Neurological exam: Alert, Normal Gait, Oriented x3 - Psychiatric Exam Psychiatric exam: Normal Affect, Normal Mood - Skin Skin Exam: Normal Color, Warm Discharge Plan - Discharge Medications Prescriptions: Atorvastatin [Lipitor] 40 mg PO DIN #30 tab Cholecalciferol [Vitamin D] 1,000 iu PO DAILY #30 tab - Follow Up Plan Condition: STABLE Disposition: HOME/ ROUTINE Additional Instructions: 1. Take medications as prescribed. 2. Recommend to make an appointment with Dr. Boswell, Cardiology for outpatient stress test. 3. Echo showed EF of 54%, which is normal. Referrals: Antonio Farfan MD [Primary Care Provider] - Raoul Boswell MD [Staff Provider] -
--- NOTE | 2018-01-19 17:34 | CARD ---
APPROVED REPORT EXAM: Two-dimensional and M-mode echocardiogram with Doppler and color Doppler. INDICATION Hypertension/HCVD PRESENTING TIA LIKE SYMPTOMS 2D DIMENSIONS Left Atrium (2D)4.1 (1.6-4.0cm)IVSd1.2 (0.7-1.1cm) LVDd4.1 (3.9-5.9cm)PWd1.0 (0.7-1.1cm) LVDs2.9 (2.5-4.0cm)FS (%) 28.1 % LVEF (%)54.9 (>50%) M-Mode DIMENSIONS Aortic Root3.30 (2.2-3.7cm)Aortic Cusp Exc.1.80 (1.5-2.0cm) Aortic Valve AoV Peak Wymlssdw481.0cm/Sophie Peak GR.11mmHg Mitral Valve MV E Etxdtfso25.0cm/sMV A Vbugzdid44.9cm/sE/A ratio0.9 TDI Lateral E' Peak V6.92cm/sMedial E' Peak V5.26cm/sE/Lateral E'12.3 E/Medial E'16.2 Pulmonary Valve PV Peak Lvaahhmn92.7cm/sPV Peak Grad.2mmHg Tricuspid Valve TR Peak [id number]/sRAP [id number] Peak Gr.17mmHg [id number] LEFT VENTRICLE The left ventricle is normal size. There is normal left ventricular wall thickness. The left ventricular function is normal. The left ventricular ejection fraction is within the normal range. There is normal LV segmental wall motion. Transmitral Doppler flow pattern is Grade I-abnormal relaxation pattern. RIGHT VENTRICLE The right ventricle is normal size. There is normal right ventricular wall thickness. The right ventricular systolic function is normal. ATRIA The left atrium size is normal. The right atrium size is normal. AORTIC VALVE The aortic valve is normal in structure. No aortic regurgitation is present. There is no aortic valvular stenosis. MITRAL VALVE The mitral valve is normal in structure. There is no mitral valve regurgitation noted. There is no mitral valve stenosis. TRICUSPID VALVE The tricuspid valve is normal in structure. PULMONIC VALVE There is mild pulmonic valvular regurgitation. GREAT VESSELS The aortic root is normal in size. PERICARDIAL EFFUSION There is no pericardial effusion. <Conclusion> The left ventricle is normal size. There is normal left ventricular wall thickness. The left ventricular function is normal. The left ventricular ejection fraction is within the normal range. There is normal LV segmental wall motion. Transmitral Doppler flow pattern is Grade I-abnormal relaxation pattern.
--- NOTE | 2018-01-19 18:50 | CARD ---
APPROVED REPORT EKG Measurement Heart [id number] <Conclusion> Sinus bradycardia Otherwise normal ECG
== END 2018-01-19 15:23 | disposition home or self-care (01) ==
LOC: ED 17:43 → ERH 20:43 → INTOOBSV 20:43 → ERH 21:37 → 3RNO 22:37
PROVIDERS: ADMIT Internal Medicine; ATTEND Internal Medicine
DX: E11.40 Type 2 diabetes mellitus with diabetic neuropathy, unspecified (principal); G43.409 Hemiplegic migraine, not intractable, without status migrainosus; I10 Essential (primary) hypertension; R07.89 Other chest pain; E78.2 Mixed hyperlipidemia; E55.9 Vitamin D deficiency, unspecified; J45.909 Unspecified asthma, uncomplicated; M19.90 Unspecified osteoarthritis, unspecified site; G56.03 Carpal tunnel syndrome, bilateral upper limbs; Z79.82 Long term (current) use of aspirin; Z79.84 Long term (current) use of oral hypoglycemic drugs; Z86.73 Personal history of transient ischemic attack (TIA), and cerebral infarction without residual deficits
CPT/HCPCS: 36415; 70450; 70496; 70498; 70551; 80053; 80061; 82306; 82607; 82746; 82948; 83036; 84439; 84443; 84484; 85025; 93005; 93306; 94640; 94760; 96372; 96374; 97116; 97161; 99285; G0378; G8978; G8979; G8980; J1650; J1885